=== PATIENT | male | born 2005 | race Caucasian/White ===

== ENCOUNTER 2024-11-13 18:10 | Emergency (ER) | payer OTHER ==
[2024-11-13] MEDS: Bacitracin Oint 1 GM U/D Packet TOP ONE (19:07)
== END 2024-11-13 21:12 | disposition home or self-care (01) ==
LOC: JP.ED 18:10
DX: S00.05XA Superficial foreign body of scalp, initial encounter (principal); W45.8XXA Other foreign body or object entering through skin, initial encounter
CPT/HCPCS: 99283; J2003